=== PATIENT | male | born 1965 | race Caucasian/White ===

== ENCOUNTER → 2020-09-07 00:16 | Outpatient (CLI) | payer OTHER, SELFPAY ==
[2020-09-07 21:52] LABS: SARS-CoV-2 RNA PCR Negative
== END ==
PROVIDERS: PCP Internal Medicine; Visit Provider Internal Medicine Gastroenterology
DX: Z01.812 Encounter for preprocedural laboratory examination (principal); Z20.822 Contact with and (suspected) exposure to COVID-19
CPT/HCPCS: C9803; U0003; U0005

== ENCOUNTER 2020-09-10 00:58 | Day surgery (SDC) | payer OTHER, SELFPAY ==
[2020-09-01 10:51] VITALS: BMI 30.7
[2020-09-10 06:23] VITALS: BP 124/70; PULSE 57; RESP 18; TEMP 36.2; O2SAT 97; BMI 32.1
[2020-09-10] MEDS: LACTATED RINGERS 1,000 ML 150 ML IV CONT (06:36)
--- NOTE | 2020-09-10 07:13 | PM.HPGS ---
History of Present Illness History of Present Illness Consent: Risks, benefits, and alternatives have been discussed and questions answered. Patient agrees to proceed with procedure. Chief complaint: Dysphagia Narrative: Chema Neal is a 55 year old male with Dysphagia for solid food. He had an esophageal stricture dilated about 5 years ago. A year so ago he began noticing that meet would often gets stuck. He needs to chew it or cut it quite a bit to get it down Review of Systems Review of Systems: All systems reviewed & are unremarkable except as noted in HPI and below PMFSH Family History Family History Father Lung cancer Mother Alzheimer disease Social History Social History Second hand tobacco smoke exposure: No Alcohol intake: never Living arrangements: alone Gender identity (if verbalized by the patient): Male Meds Home Medications and Allergies Home Medications Medication Instructions Recorded Confirmed Type ascorbic acid (vitamin C) 500 mg 500 mg PO DAILY 07/18/19 09/10/20 History tablet aspirin 81 mg tablet,delayed 81 mg PO DAILY 07/18/19 09/10/20 History release ccuyskpy-znk-icdnd acid 300 1 tablet PO DAILY 07/18/19 09/10/20 History mcg-lycopene 600 mcg-lutein 300 mcg tablet atorvastatin 20 mg tablet See Rx Instructions .ROUTE 03/19/20 09/10/20 Rx .COMPLEX #90 tablet testosterone cypionate 200 mg/mL 200 mg IM .COMPLEX #10 ml 08/07/20 09/10/20 Rx intramuscular oil omega 7-fij-tts-fish oil [Fish Oil] 1 cap PO DAILY 09/01/20 09/10/20 History Allergies Allergy/AdvReac Type Severity Reaction Status Date / Time No Known Allergies Allergy Unknown Verified 09/10/20 06:22 Vital Signs Vital Signs - 24 hr 09/10/20 06:23 Temperature 36.2 C L Pulse Rate 57 L Respiratory Rate 18 Blood Pressure 124/70 Pulse Oximetry 97 Exam Resp: Auscultation: clear to auscultation bilaterally Cardio: Rate: regular rate Rhythm: regular rhythm GI: GI Palp: Yes Soft to palpation and No Tenderness to palpation present (GI) Assessment and Plan Assessment and plan (1) Dysphagia: Qualifiers: Dysphagia type: other dysphagia Qualified Code(s): R13.19 - Other dysphagia Code(s): R13.10 - Dysphagia, unspecified Status: Acute Assessment and Plan: EGD with possible biopsy or dilatation or cautery.
--- NOTE | 2020-09-10 07:22 | WPDANESEPPF ---
Anes - Initial Pre Proc Eval Procedure: Operation Date: 09/10/20 07:30 Proposed Procedures p Esophagogastroduodenoscopy - Porfirio Davis MD Date/Time: 09/10/20 07:22 Surgeon: Porfirio Davis MD Pre Op Diagnosis: Dysphagia Patient Data Age: 55 Gender: M Height: 5 ft 10 in Weight: 101.4 kg Last Vital Signs Temp 97.1 F L 09/10/20 06:23 Pulse 57 L 09/10/20 06:23 Resp 18 09/10/20 06:23 BP 124/70 09/10/20 06:23 Pulse Ox 97 09/10/20 06:23 Allergies Allergy/AdvReac Type Severity Reaction Status Date / Time No Known Allergies Allergy Unknown Verified 09/10/20 06:22 Home Medications Medication Instructions Recorded Confirmed Type ascorbic acid (vitamin C) 500 mg 500 mg PO DAILY 07/18/19 09/10/20 History tablet aspirin 81 mg tablet,delayed 81 mg PO DAILY 07/18/19 09/10/20 History release rljwviyq-vka-jtrma acid 300 1 tablet PO DAILY 07/18/19 09/10/20 History mcg-lycopene 600 mcg-lutein 300 mcg tablet atorvastatin 20 mg tablet See Rx Instructions .ROUTE 03/19/20 09/10/20 Rx .COMPLEX #90 tablet testosterone cypionate 200 mg/mL 200 mg IM .COMPLEX #10 ml 08/07/20 09/10/20 Rx intramuscular oil omega 2-lnl-xkv-fish oil [Fish Oil] 1 cap PO DAILY 09/01/20 09/10/20 History Patient hx anesthesia problems: none Family hx anesthesia problems: none [facility] Past Medical History Medical History (Updated 09/10/20 @ 07:22 by Mike Lamas MD) GERD (gastroesophageal reflux disease) Hyperlipidemia Family History Family History Father Lung cancer Mother Alzheimer disease Social History Social History Second hand tobacco smoke exposure: No Alcohol intake: never Living arrangements: alone Gender identity (if verbalized by the patient): Male Anes - Eval Final PreProcedure Day of Procedure 09/10/20 07:22 Patient weight: obese Heart: regular rate and rhythm Lungs: clear to auscultation Airway: Mallampati scale class II Neurological: alert and oriented Last oral intake: >/= 8 hours ASA classification: II Emergent: no Anesthetic plan: proceed Anesthesia type and monitoring: general GIVS and standard monitoring Informed Consent: The patient's anesthetic plan and its attendant risks and benefits were discussed with the patient/family/POA. Questions were solicited and answers provided to the satisfaction of the patient/family/POA.
[2020-09-10 07:40] VITALS: BP 101/65; PULSE 51; RESP 20; O2SAT 95
[2020-09-10 07:50] VITALS: BP 111/69; PULSE 47; RESP 17; O2SAT 97
[2020-09-10 08:00] VITALS: BP 112/74; PULSE 47; RESP 20; O2SAT 97
== END 2020-09-10 08:15 | disposition home or self-care (01) ==
PROVIDERS: PCP Internal Medicine; Visit Provider Internal Medicine Gastroenterology
PROC: 0DJ08ZZ Inspection of Upper Intestinal Tract, Via Natural or Artificial Opening Endoscopic (ICD-10-PCS; CPT 43235; principal; 2020-09-10 07:30)
DX: K22.2 Esophageal obstruction (principal); K29.70 Gastritis, unspecified, without bleeding; K21.00 Gastro-esophageal reflux disease with esophagitis, without bleeding; E78.5 Hyperlipidemia, unspecified; Z79.82 Long term (current) use of aspirin; E66.9 Obesity, unspecified; Z68.32 Body mass index [BMI] 32.0-32.9, adult
CPT/HCPCS: 43239; 43249; 87081; 88305; C1726; C9803; J2001; J2704; J7120; U0003; U0005

== ENCOUNTER 2021-02-07 12:04 | Emergency (ER) | payer OTHER, SELFPAY ==
[2021-02-07 12:07] VITALS: BP 119/73; PULSE 50; RESP 12; TEMP 36.6; O2SAT 97
--- NOTE | 2021-02-07 12:11 | ED.EYEPROB ---
HPI - Eye Problem General Chief complaint: Eye Problems Stated complaint: CONTACT LENS STUCK IN L EYE Time Seen by Provider: 02/07/21 12:11 Source: patient and RN notes reviewed Mode of arrival: ambulatory Limitations: no limitations History of Present Illness HPI Narrative: 56-year-old male presents with concern for possible contact lens in his left eye. Reports while at [employer] he felt the contact dislodge and feels like it stuck. Reports he flushed the eye with no relief. Denies being able to visualize the contact in the eye. Reports redness and irritation. MD chief complaint: foreign body Related Data Home Medications Medication Instructions Recorded Confirmed ascorbic acid (vitamin C) 500 mg 500 mg PO DAILY 07/18/19 02/07/21 tablet aspirin 81 mg tablet,delayed 81 mg PO DAILY 07/18/19 02/07/21 release eanmepxy-sfl-boqly acid 300 1 tablet PO DAILY 07/18/19 02/07/21 mcg-lycopene 600 mcg-lutein 300 mcg tablet omega 7-iew-mjf-fish oil [Fish Oil] 1 cap PO DAILY 09/01/20 02/07/21 Allergies Allergy/AdvReac Type Severity Reaction Status Date / Time No Known Allergies Allergy Unknown Verified 02/07/21 12:07 Review of Systems Review of Systems: CONSTITUTIONAL: Denies malaise, chills, sweats, or fever. EYES: Denies visual changes. Reports left eye redness, irritation and watering discharge with possible foreign body. NEUROLOGIC: Denies headache. All systems reviewed & are unremarkable except as noted in HPI and below PMFSH Past Medical History Medical History (Updated 02/07/21 @ 12:25 by Shantell Berman NP) GERD (gastroesophageal reflux disease) Hyperlipidemia Family History Family History Father Lung cancer Mother Alzheimer disease Social History Social History (Updated 01/22/21 @ 10:03 by Kath Ang Andrea) Smoking status: Never smoker Second hand tobacco smoke exposure: No Alcohol intake: never Substance use: never Substance use type: does not use Gender identity (if verbalized by the patient): Male Comments At time of signature, agree with nursing past medical, surgical, social and family history. There is no relevant family history pertinent to the presenting complaint Exam Narrative: GENERAL: Well-appearing, well-nourished, and in no acute distress. HEAD: Normocephalic, atraumatic. EYES: PERRLA, right sclera clear, and EOMI. left sclera injected, conjunctivae clear. No foreign body noted upon exam, see note ENT: Nares clear. Mucous membranes moist. NECK: Supple. CHEST: No respiratory distress. Speaks in full sentences. HEART: Regular rate and rhythm. SKIN: Warm, dry, no visible rash. NEURO: Alert and oriented x3. PSYCH: Normal mood and affect Course Course Emergency Course: Patient is aware of diagnosis, understands and agrees to treatment plan. Anticipatory guidance given. Patient agrees to follow-up as directed and is aware of reasons to seek care at the emergency department. Portions of this record may have been created with voice recognition software Vital Signs Vital signs: Vital Signs Temperature 97.9 F 02/07/21 12:07 Pulse Rate 50 L 02/07/21 12:07 Respiratory Rate 12 02/07/21 12:07 Blood Pressure 119/73 02/07/21 12:07 Pulse Oximetry 97 02/07/21 12:07 Temperature 97.9 F 02/07/21 12:07 Pulse Rate 50 L 02/07/21 12:07 Respiratory Rate 12 02/07/21 12:07 Blood Pressure 119/73 02/07/21 12:07 Pulse Oximetry 97 02/07/21 12:07 Reviewed. Procedures FB Removal Eye Foreign Body #1: Foreign Body Removal Date: 02/07/21 Foreign Body Removal Time: 12:10 Time Out performed: Yes Location: eye (L) Topical anesthetic used: tetracaine Foreign body: other (No foreign body found) Evidence of corneal penetration: No Technique: irrigation and cotton tip swab Procedure performed under: other (With slight not avail
== END 2021-02-07 12:32 | disposition home or self-care (01) ==
PROVIDERS: Emergency Provider Nurse Practitioner; PCP Internal Medicine
DX: S05.02XA Injury of conjunctiva and corneal abrasion without foreign body, left eye, initial encounter (principal); X58.XXXA Exposure to other specified factors, initial encounter; K21.9 Gastro-esophageal reflux disease without esophagitis; E78.5 Hyperlipidemia, unspecified
CPT/HCPCS: 99213; A9270; G0463

== ENCOUNTER 2021-07-26 10:09 | Outpatient (CLI) | payer OTHER, SELFPAY ==
--- NOTE | ~2021-07-26 | US_ITS ---
US abdomen complete DATE: 07/26/2021 10:59 INDICATION: Jaundice TECHNIQUE: Real-time imaging and Doppler analysis of the abdomen COMPARISON: None FINDINGS: Hepatic steatosis. No hepatic space-occupying mass lesion is evident. Normal hepatopedal po rtal venous flow direction. No evidence of gallstones, gallbladder wall thickening or pericholecystic fluid collection. Negative sonographic Erickson's sign. The common bile duct measures 5.4 mm, within normal limits. The pancreas is partially obscured by bowel gas, not optimally evaluated. The spleen measures approximately 12 cm length, within normal range. No renal mass lesion or hydronephrosis is detected. No abdominal aortic aneurysm is evident. The inferior vena cava is unremarkable. IMPRESSION: Hepatic steatosis Reviewed, dictated and finalized at [facility] Reviewed, dictated and finalized at [facility] IMPRESSION: Hepatic steatosis
== END 2021-07-26 10:10 | disposition home or self-care (01) ==
PROVIDERS: PCP Internal Medicine; Visit Provider Nurse Practitioner
DX: K76.0 Fatty (change of) liver, not elsewhere classified (principal)
CPT/HCPCS: 76700

== ENCOUNTER → 2021-09-04 00:06 | Outpatient (CLI) | payer OTHER, SELFPAY ==
[2021-09-04 11:21] LABS: SARS-CoV-2 RNA PCR Negative
== END ==
PROVIDERS: PCP Nurse Practitioner; Visit Provider Nurse Practitioner
DX: R09.89 Other specified symptoms and signs involving the circulatory and respiratory systems (principal); Z20.822 Contact with and (suspected) exposure to COVID-19
CPT/HCPCS: C9803; U0003; U0005

== ENCOUNTER 2022-12-22 10:30 | Outpatient (RCR) | payer OTHER, SELFPAY ==
--- NOTE | 2022-11-23 11:38 | PTOPEVAL1 ---
Assessment and note entered by William Jeff Evaluation Information Assessment Status Evaluation Diagnosis right shoulder pain Onset 09/25/22 Subjective Information Pt. reports that he developed right shoulder pain a couple months ago. He states that pain is most notable at night when trying to sleep. He describes pain in the front of the right shoulder and can radiate into the lateral brachial region. He also describes occasional pain shooting across the described upper trap. Pt. reports that pain will wake him at night on ocassion. He reports that he takes care of his yard, but it is difficult due to pain with trying to use his ana. He states that he also has pain reaching behind the back or reaching to the backseat of his car. He has done xray of the right shoulder which did reveal arthritis. He is left hand dominant. 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 He reports that his goal is to decrease his pain. Reported Pain Level Pain Score 2: Self Report Assessment PT Clinical Summary Didi is a 57 year old male who enters the clinic with right shoulder pain. He presents with indication of cervical nerve root impingement, as well as right shoulder impingement. He currently presents with impaired c-spine mobility, impaired proximal u.e. strength, impaired postural awareness and pain. Continued skilled PT is indicated in order to improve these areas to allow the pt. to complete all IADL's without limitation . Plan of Care Interventions Electrical Stimulation,Hot Pack/Cold Pack,Manual Therapy,Neuro Re-education,Patient/Caregiver Educati,Therapeutic Activities,Therapeutic Exercise PT Services Indicated Yes Treatment Frequency and 2x/week x 10 visits Duration These treatments will address the objective and functional deficits as defined above. The patient will be advanced safely and appropriately in order for the patient to progress towards his/her prior level of function. Additional exercises will be introduced and as well as a comprehensive home exercise program upon discharge, if needed, ?to ensure carryover of functional gains achieved in the clinic. This treatment plan has been reviewed and agreement upon by the patient.
--- NOTE | 2022-11-23 11:39 | OPREHPOC ---
Outpatient Therapy Plan of Care This is a Multidisciplinary Plan of Care that may contain components documented by all disciplines (PT, OT, and ST.) PT Problem 1 PT Problem #1 Knowledge Deficit PT Goal 1 Goal Indepnedent with a HEP addressing postural awareness. Target Visit 2 PT Problem 2 PT Problem #2 Pain PT Goal 1 Goal Reduce pain to 2/10 at worst with all work related activities and report being able to sleep through the night without disturbance. Target Visit 10 PT Problem 3 PT Problem #3 Impaired Range of Motion PT Goal 1 Goal Demonstrate 70 degrees bilateral c-spine rotation to improve visual field. Target Visit 10 PT Problem 4 PT Problem #4 Impaired Strength PT Goal 1 Goal -Pt. will present with 5/5 gross proximal u.e. strength. -Increase u.e. strength in order to improve postural awareness.
--- NOTE | 2022-12-22 11:17 | PTOPDC ---
Assessment and note entered by William Jeff Evaluation Information Assessment Status Discharge Diagnosis right shoulder pain Onset 09/25/22 Subjective Information Pt. reports that he has had no pain for awhile. He reports if he does experience pain in the right arm it is brief. He states that he continues to exercise at home and is ready for discharge at this time. Reported Pain Level Pain Score 0: Self Report Pain Score 0: Self Report Assessment PT Clinical Summary Mr. Neal attended a total of 9 treatment sessions. He has met all goals established at the initial evaluation and is appropriate for discharge at this time. Plan of Care PT Services Indicated Yes
== END 2022-12-22 11:40 | disposition home or self-care (01) ==
LOC: ANHPT 10:30
PROVIDERS: PCP Family Medicine; Visit Provider Family Medicine
DX: M25.511 Pain in right shoulder (principal)
CPT/HCPCS: 97110; 97112; 97140; 97161

== ENCOUNTER 2023-12-11 00:59 | Day surgery (SDC) | payer OTHER, SELFPAY ==
[2023-11-16 14:35] VITALS: BMI 30.9
[2023-12-11 08:37] VITALS: BP 125/76; PULSE 62; RESP 18; TEMP 36.3; O2SAT 97
[2023-12-11] MEDS: LACTATED RINGERS 1,000 ML 150 ML IV CONT (08:46)
--- NOTE | 2023-12-11 09:06 | WPDANESEPPF ---
Anes - Initial Pre Proc Eval Procedure: Operation Date: 12/11/23 09:30 Proposed Procedures p Screening Colonoscopy - Young Davis DO Date/Time: 12/11/23 09:06 Surgeon: Young Davis DO Pre Op Diagnosis: Screening for malignant neoplasm of colon Patient Data Age: 58 Gender: M Height: 1.78 m Weight: 100.2 kg Last Vital Signs Temp 97.4 F L 12/11/23 08:37 Pulse 62 12/11/23 08:37 Resp 18 12/11/23 08:37 BP 125/76 12/11/23 08:37 Pulse Ox 97 12/11/23 08:37 O2 Del Method Room Air 12/11/23 08:37 Allergies Allergy/AdvReac Type Severity Reaction Status Date / Time No Known Allergies Allergy Unknown Verified 12/11/23 08:35 Home Medications Medication Instructions Recorded Confirmed Type ascorbic acid (vitamin C) 500 mg 500 mg PO DAILY 07/18/19 12/11/23 History tablet aspirin 81 mg tablet,delayed 81 mg PO DAILY 07/18/19 12/11/23 History release pemsdjbm-ya-ublpa 300 mcg-K 60 1 tablet PO DAILY 07/18/19 12/11/23 History mcg-lycop 600 mcg-lutein 300 mcg tablet (Centrum Silver Ultra Men's) omega 5-osa-dyc-fish oil 60 mg-90 1 cap PO DAILY 09/01/20 12/11/23 History mg-500 mg capsule (Fish Oil) omeprazole 40 mg capsule,delayed See Rx Instructions .Route 11/28/22 12/11/23 Rx release .COMPLEX #90 caps testosterone cypionate 200 mg/mL 200 mg IM WEEKLY #10 mL 10/09/23 12/11/23 Rx intramuscular oil (Depo-Testosterone) atorvastatin 20 mg tablet See Rx Instructions .Route 10/16/23 12/11/23 Rx .COMPLEX #90 tabs Patient hx anesthesia problems: none Family hx anesthesia problems: none Results Review: All pre-operative results and documents have been reviewed as part of the pre-operative evaluation. [facility] Past Medical History Medical History GERD (gastroesophageal reflux disease) Hyperlipidemia Family History Family History Father Lung cancer Mother Alzheimer disease Social History Social History Smoking status: Never smoker Second hand tobacco smoke exposure: No Alcohol intake: never Substance use: never Substance use type: does not use Lack of Transportation: No Lack of Food: Never True Current Housing: I Have Housing Concerned About Future Housing: No Difficulty Paying Gas/Electric Bills: No Difficulty Paying for Meds: No Currently Unemployed: No Education: Bachelor's Degree Difficulty w/ Childcare or Family Care: No Living arrangements: with family Gender identity (if verbalized by the patient): Male Spiritual care concerns: No Anes - Eval Final PreProcedure Day of Procedure 12/11/23 09:06 Patient weight: obese Heart: regular rate and rhythm Lungs: clear to auscultation Airway: Mallampati scale class II Neurological: alert and oriented Last oral intake: >/= 8 hours ASA classification: II Emergent: no Anesthetic plan: proceed Anesthesia type and monitoring: general GIVS and standard monitoring Results Review: All pre-operative results and documents have been reviewed as part of the pre-operative evaluation. Informed Consent: The patient's anesthetic plan and its attendant risks and benefits were discussed with the patient/family/POA. Questions were solicited and answers provided to the satisfaction of the patient/family/POA.
--- NOTE | 2023-12-11 09:26 | PM.IMHP ---
H&P: HPI History of Present Illness Date/Time: 12/11/23 09:26 Chief Complaint: screening for colorectal cancer Narrative: this is a 58-year-old man who presents for colonoscopy. His last colonoscopy was 10 years ago and was normal. He denies any hematochezia or melena. He denies any first-degree family members with colon cancer but did have a grandfather that had colon cancer Review of Systems Review of Systems: All systems reviewed & are unremarkable except as noted in HPI and below Constitutional: Constitutional: Denies chills, Denies fever(s), Denies headache(s) and Denies weight loss Eyes: Eyes: Denies change in vision ENT: Denies dizziness, Denies headache(s), Denies neck mass and Denies throat swelling Cardiovascular: Cardiovascular: Denies chest pain, Denies lightheadedness and Denies dyspnea Respiratory: Respiratory: Denies cough, Denies dyspnea and Denies wheezing Gastrointestinal: Gastrointestinal: Denies abdominal pain, Denies change in bowel habits, Denies nausea and Denies vomiting Genitourinary: Genitourinary: Denies hematuria and Denies dysuria Musculoskeletal: Musculoskeletal: Reports as per HPI Integumentary/Breasts: Skin/Breast: Reports as per HPI Neurologic: Denies dizziness and Denies headache(s) Allergic/Immunologic: Allergic/Immunologic: Denies throat swelling and Denies wheezing [facility] Past Medical History Medical History GERD (gastroesophageal reflux disease) Hyperlipidemia Family History Family History Father Lung cancer Mother Alzheimer disease Social History Social History Smoking status: Never smoker Second hand tobacco smoke exposure: No Alcohol intake: never Substance use: never Substance use type: does not use Lack of Transportation: No Lack of Food: Never True Current Housing: I Have Housing Concerned About Future Housing: No Difficulty Paying Gas/Electric Bills: No Difficulty Paying for Meds: No Currently Unemployed: No Education: Bachelor's Degree Difficulty w/ Childcare or Family Care: No Living arrangements: with family Gender identity (if verbalized by the patient): Male Spiritual care concerns: No Meds Home Medications and Allergies Home Medications Medication Instructions Recorded Confirmed Type ascorbic acid (vitamin C) 500 mg 500 mg PO DAILY 07/18/19 12/11/23 History tablet aspirin 81 mg tablet,delayed 81 mg PO DAILY 07/18/19 12/11/23 History release pslxvhbv-rm-xlyxz 300 mcg-K 60 1 tablet PO DAILY 07/18/19 12/11/23 History mcg-lycop 600 mcg-lutein 300 mcg tablet (Centrum Silver Ultra Men's) omega 5-uun-axs-fish oil 60 mg-90 1 cap PO DAILY 09/01/20 12/11/23 History mg-500 mg capsule (Fish Oil) omeprazole 40 mg capsule,delayed See Rx Instructions .Route 11/28/22 12/11/23 Rx release .COMPLEX #90 caps testosterone cypionate 200 mg/mL 200 mg IM WEEKLY #10 mL 10/09/23 12/11/23 Rx intramuscular oil (Depo-Testosterone) atorvastatin 20 mg tablet See Rx Instructions .Route 10/16/23 12/11/23 Rx .COMPLEX #90 tabs Allergies Allergy/AdvReac Type Severity Reaction Status Date / Time No Known Allergies Allergy Unknown Verified 12/11/23 08:35 Vital Signs Vital Signs - 24 hr 12/11/23 08:37 Temperature 36.3 C L Pulse Rate 62 Respiratory Rate 18 Blood Pressure 125/76 Pulse Oximetry 97 Oxygen Delivery Room Air Exam Const: General: no acute distress and alert Orientation/consciousness: patient oriented x3 HENMT: Head: normocephalic and atraumatic Ears: hearing grossly normal bilaterally Face/Nose/Sinus: Normal nares present Mouth: Yes Normal oral and palatal mucosa present Eyes: Periorbital: periorbital findings normal Sclera: sclerae normal EOM: EOMs intact bilaterally Neck: Neck: normal visual inspectio
[2023-12-11 09:46] VITALS: BP 103/61; PULSE 56; RESP 12; O2SAT 94
[2023-12-11 09:56] VITALS: BP 102/68; PULSE 56; RESP 15; O2SAT 94
[2023-12-11 10:06] VITALS: BP 111/76; PULSE 55; RESP 16; O2SAT 96
== END 2023-12-11 10:16 | disposition home or self-care (01) ==
PROVIDERS: PCP Family Medicine; Visit Provider Surgery
PROC: 0DJD8ZZ Inspection of Lower Intestinal Tract, Via Natural or Artificial Opening Endoscopic (ICD-10-PCS; CPT 45378; principal; 2023-12-11 09:30)
DX: Z12.11 Encounter for screening for malignant neoplasm of colon (principal); K57.30 Diverticulosis of large intestine without perforation or abscess without bleeding; E78.5 Hyperlipidemia, unspecified; K21.9 Gastro-esophageal reflux disease without esophagitis; E66.9 Obesity, unspecified; Z68.31 Body mass index [BMI] 31.0-31.9, adult; Z79.82 Long term (current) use of aspirin; Z80.1 Family history of malignant neoplasm of trachea, bronchus and lung
CPT/HCPCS: 45378; J2704; J7120